=== PATIENT | female | born 1955 | race Hispanic/Latino ===

== ENCOUNTER 2022-10-20 11:03 | Inpatient (IN) | payer BC ==
[~2022-10-20] VITALS: Ht 157.5 cm; Wt 85.4 kg
[2022-10-20] MEDS ORDERED: CEFEPIME HCL 1 GM VIAL ONE (13:26)
[2022-10-20] MEDS ORDERED: VANCOMYCIN 1G/250ML KIT 250 ML IV ONE (13:26)
[2022-10-20] MEDS ORDERED: VANCOMYCIN PROTOCOL PER PHARMACY IV SCH ×2 (13:30→14:00)
[2022-10-20] MEDS ORDERED: CEFEPIME HCL 2 GM VIAL IVP SCH (13:30)
[2022-10-20] MEDS ORDERED: VANCOMYCIN 1G VIAL IVPB ONE (13:30)
[2022-10-20] MEDS: CEFEPIME HCL 1 GM VIAL IVPB SCH ×2 (13:37→22:33)
[2022-10-20 13:40] LABS: BASOPHILS % (AUTO) 0.6 % (0.0-5.0); EOSINOPHILS % (AUTO) 2.7 % (0.0-8.0); LYMPHOCYTES % (AUTO) 21.3 % (21.0-51.0); MEAN CORPUSCULAR HEMOGLOBIN 30.1 pg (27.0-33.0); MEAN CORPUSCULAR HGB CONC 32.3 g/dL (32.0-36.0); MEAN CORPUSCULAR VOLUME 93.5 fL (79-99); MONOCYTES % (AUTO) 6.6 % (3.0-13.0); NEUTROPHILS % (AUTO) 68.4 % (40.0-77.0); PLATELET COUNT (AUTO) 323 K/uL (130-400); RED BLOOD CELL COUNT(AUTO) 4.28 MIL/uL (4.00-5.50); RED CELL DISTRIBUTION WIDTH 13.7 % (11.0-15.5); WHITE BLOOD COUNT (AUTO) 11.9 K/uL (4.8-10.8)
[2022-10-20 13:47] LABS: CREATININE 0.9 mg/dL (0.5-1.5); POTASSIUM 3.5 mmol/L (3.5-5.1)
[2022-10-20 13:49] LABS: HEMOGLOBIN A1C 6.4 % (4.0-6.0)
[2022-10-20 13:52] LABS: ALBUMIN 3.5 g/dL (3.5-5.0); TOTAL PROTEIN, SERUM 7.2 g/dL (6.0-8.3)
[2022-10-20] MEDS ORDERED: COMPOUND IV REFRIGERATED 1 EACH IVSOLN MISC PRN (15:30)
[2022-10-20 18:18] LABS: PARTIAL THROMBOPLASTIN TIME 28.2 SEC (26.3-35.5)
[2022-10-20 19:08] LABS: INR 0.95 (0.85-1.15); PROTHROMBIN TIME 10.4 SEC (9.6-11.6)
[2022-10-20 20:00] VITALS: BP 135/56
[2022-10-20] MEDS ORDERED: HYDR25TA PO (22:11)
[2022-10-20] MEDS ORDERED: OMEP20CA12 PO (22:11)
[2022-10-20] MEDS ORDERED: RAMI10CA69 PO (22:11)
[2022-10-20] MEDS ORDERED: CEPH500C2 PO (22:11)
[2022-10-20] MEDS ORDERED: ATEN50TA PO (22:11)
[2022-10-20] MEDS ORDERED: [UNRECOGNIZED DRUG - MIXTURE] PO (22:16)
[2022-10-21] VITALS (16 sets, daily range): BP systolic 102–137; BP diastolic 42–67
[2022-10-21 05:39] LABS: BASOPHILS % (AUTO) 0.6 % (0.0-5.0); EOSINOPHILS % (AUTO) 3.1 % (0.0-8.0); HEMATOCRIT 36.9 % (36-48); LYMPHOCYTES % (AUTO) 24.3 % (21.0-51.0); MEAN CORPUSCULAR HEMOGLOBIN 30.2 pg (27.0-33.0); MEAN CORPUSCULAR VOLUME 94.4 fL (79-99); MONOCYTES % (AUTO) 6.6 % (3.0-13.0); NEUTROPHILS % (AUTO) 64.9 % (40.0-77.0); PLATELET COUNT (AUTO) 281 K/uL (130-400); RED BLOOD CELL COUNT(AUTO) 3.91 MIL/uL (4.00-5.50); RED CELL DISTRIBUTION WIDTH 13.6 % (11.0-15.5); WHITE BLOOD COUNT (AUTO) 10.1 K/uL (4.8-10.8)
[2022-10-21 05:54] LABS: CREATININE 0.9 mg/dL (0.5-1.5); POTASSIUM 3.7 mmol/L (3.5-5.1)
[2022-10-21] MEDS: CEFEPIME HCL 1 GM VIAL IVPB SCH ×3 (06:35→21:50)
[2022-10-21] MEDS: HYDROCHLOROTHIAZIDE 25 MG TABLET PO SCH (09:00)
[2022-10-21] MEDS: ATENOLOL 50 MG TABLET PO SCH (09:00)
[2022-10-21] MEDS: PANTOPRAZOLE 40 MG TAB DR PO SCH (09:00)
[2022-10-21] MEDS: LISINOPRIL 40 MG TABLET PO SCH ×2 (09:00→21:50)
[2022-10-21] MEDS ORDERED: VANCOMYCIN 1.25 GM/250 ML BAG 250 ML IV SCH (12:00)
[2022-10-21] MEDS ORDERED: LIDOCAINE HCL 1% 20 ML VIAL ONE (12:09)
[2022-10-21] MEDS ORDERED: BUPIVACAINE/PF 0.5% 10ML VIAL ONE (12:09)
[2022-10-21] MEDS ORDERED: MIDAZOLAM HCL 1 MG/ML 2ML VIAL ONE (14:03)
[2022-10-21] MEDS ORDERED: FENTANYL CITRATE PF 50 MCG/1 ML 2ML VIAL ONE (14:04)
[2022-10-21] MEDS ORDERED: PROPOFOL 10 MG/ML 20ML VIAL IV ONE ×2 (14:04→14:32)
[2022-10-21] MEDS ORDERED: BUPIVACAINE/PF 0.5% 30ML VIAL INJ ONE (14:22)
[2022-10-21] MEDS ORDERED: LIDOCAINE HCL 1% 20 ML VIAL MISC ONE (14:25)
[2022-10-21] MEDS ORDERED: ONDANSETRON 4MG INJ ONE (14:32)
[2022-10-21] MEDS ORDERED: IPRATROPIUM 0.5 MG/2.5 ML INH IH ONE (15:14)
[2022-10-21] MEDS ORDERED: ALBUTEROL 0.083% 2.5 MG/3 ML INH IH ONE (15:16)
[2022-10-22] MEDS ORDERED: ACETAMINOPHEN 325 MG TAB PO PRN (01:30)
[2022-10-22 01:42] VITALS: BP 122/50
[2022-10-22 04:00] VITALS: BP 132/71
[2022-10-22] MEDS: CEFEPIME HCL 1 GM VIAL IVPB SCH ×2 (06:05→14:56)
[2022-10-22 08:00] VITALS: BP 132/65
[2022-10-22] MEDS: ATENOLOL 50 MG TABLET PO SCH (10:27)
[2022-10-22] MEDS: HYDROCHLOROTHIAZIDE 25 MG TABLET PO SCH (10:27)
[2022-10-22] MEDS: LISINOPRIL 40 MG TABLET PO SCH (10:28)
[2022-10-22] MEDS: PANTOPRAZOLE 40 MG TAB DR PO SCH (10:28)
[2022-10-22] MEDS ORDERED: LACTULOSE 20 GM/30 ML UDCUP PO ONE (10:30)
[2022-10-22 11:54] VITALS: BP 114/69
[2022-10-22 16:00] VITALS: BP 137/81
== END 2022-10-22 16:30 | disposition home or self-care (01) | DRG 580 ==
LOC: EDH 11:03 → DIRECT 11:04 → 3CH 18:21
PROVIDERS: ADMIT Internal Medicine; ATTEND Internal Medicine
PROC: 0JCR0ZZ Extirpation of Matter from Left Foot Subcutaneous Tissue and Fascia, Open Approach (ICD-10-PCS; principal; 2022-10-21 14:10)
DX: S91.332A Puncture wound without foreign body, left foot, initial encounter (principal); L03.116 Cellulitis of left lower limb; Z20.822 Contact with and (suspected) exposure to COVID-19; D72.829 Elevated white blood cell count, unspecified; E11.621 Type 2 diabetes mellitus with foot ulcer; D64.9 Anemia, unspecified; E66.9 Obesity, unspecified; E78.5 Hyperlipidemia, unspecified; I10 Essential (primary) hypertension; L97.509 Non-pressure chronic ulcer of other part of unspecified foot with unspecified severity; S90.852A Superficial foreign body, left foot, initial encounter; W45.8XXA Other foreign body or object entering through skin, initial encounter; Z83.3 Family history of diabetes mellitus; Z79.899 Other long term (current) drug therapy; Z68.34 Body mass index [BMI] 34.0-34.9, adult
CPT/HCPCS: 36415; 71045; 73630; 80048; 80053; 82948; 83036; 84145; 85025; 85610; 85730; 87070; 87076; 87635; 93005; 93925; 94640; 97039; G0378; J0692; J2250; J2405; J2704; J3010; J3370; J3490